=== PATIENT | female | born 1930 | race Caucasian/White ===

== ENCOUNTER 2017-09-19 14:35 | Emergency (ER) | payer MEDICARE ==
--- NOTE | 2017-09-19 15:58 | RAD ---
INDICATION: RIGHT wrist pain for one week. Limitation in extension of fingers. COMPARISON: None. TECHNIQUE: AP, lateral, and oblique views RIGHT wrist. REPORT: Negative for fracture or malalignment. Severe nonfocal soft tissue swelling. No subcutaneous emphysema or conspicuous foreign body. 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 Osteoarthritis is also advanced scaphoid trapezium articulation. Diastases at the scapholunate interval and increased scapholunate angle with scapholunate ligament tear. Osseous erosion at the ulnar styloid. At the distal margin of the [id number] there is osteoarthritis at the metacarpal phalangeal joints. IMPRESSION: 1. Diffuse soft tissue swelling; correlate for cellulitis as well as systemic causes of soft tissue edema. Deep soft tissue infection and septic arthritis is not excluded on the basis of this exam. 2. 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 3. Small nonspecific osseous erosion at the ulnar styloid.
--- NOTE | 2017-09-19 16:10 | UC ---
Upper Extremity HPI - HPI Summary HPI Summary: c/o right wrist and hand pain for the past 3-4 days. Denies history of trauma, fall, cut or triggering movement. Denies fever, denies changes of medications besides usual. Allergies: Sulfas. - History of Current Complaint Chief Complaint: UCUpperExtremity Stated Complaint: WRIST PAIN Time Seen by Provider: 09/19/17 15:29 - Allergies/Home Medications Allergies/Adverse Reactions: Allergies Allergy/AdvReac Type Severity Reaction Status Date / Time Sulfa Antibiotics Allergy Intermediate Hives Verified 09/19/17 15:03 Home Medications: Home Medications Insulin Aspart [Novolog Flexpen] 100 unit SC DAILY 09/19/17 [History Confirmed 09/19/17] Metoprolol Tartrate [Lopressor] 50 mg PO BID 09/19/17 [History Confirmed ] Spironolactone [Aldactone 25 MG-] 12.5 mg PO DAILY 09/19/17 [History Confirmed 09/19/17] amLODIPine TAB* [Norvasc 5 mg TAB*] 10 mg PO DAILY 09/19/17 [History Confirmed 09/19/17] PMH/Surg Hx/FS Hx/Imm Hx Previously Healthy: Yes Endocrine History: Diabetes Cardiovascular History: Cardiac Disease, Hypertension - Surgical History Surgical History: Yes Surgery Procedure, Year, and Place: bilat knee replacements - Social History Alcohol Use: None Substance Use Type: None Smoking Status (MU): Never Smoked Tobacco - Immunization History Most Recent Influenza Vaccination: 2017 Review of Systems Constitutional: Negative Skin: Negative Musculoskeletal: Arthralgia, Edema Is Patient Immunocompromised?: No All Other Systems Reviewed And Are Negative: Yes Physical Exam Triage Information Reviewed: Yes Appearance: Well-Appearing, Obese Vital Signs: Initial Vital Signs Temp 99.0 F 09/19/17 14:55 Pulse 79 09/19/17 14:55 Resp 20 09/19/17 14:55 BP 182/55 09/19/17 14:55 Pulse Ox 97 09/19/17 14:55 Vital Signs Reviewed: Yes Eyes: Positive: Conjunctiva Clear Respiratory Exam: Normal Cardiovascular Exam: Normal Musculoskeletal Exam: Other - erythema and soft tissue swelling right wrist and hand. Unable to evaluate ROM due to pain. Radial/ulnar pulse positive b/l. Upper Extremity Course/Dx - Course Course Of Treatment: start antibiotic first dose at UC and continue as prescribed every 12 hrs for a week. Follow up with PCP in a week for evaluation and follow up - Differential Dx/Diagnosis Provider Diagnoses: cellulitis right hand/wrist Discharge - Discharge Plan Condition: Stable Disposition: HOME Patient Education Materials: Cellulitis (ED) Referrals: Neno Leigh MD [Primary Care Provider] -
[2017-09-19] MEDS ORDERED: Amoxicillin/Clavulanate TAB* 875 MG PO ONE (16:18)
[2017-09-19] MEDS ORDERED: HYDROcodone/ACETAMIN 5-325 MG* 1 TAB PO PRN (16:31)
[2017-09-19] MEDS ORDERED: HYDROcodone/ACETAMIN 5-325 MG* 1 TAB PO ONE ×2 (16:36→16:57)
[2017-09-19 17:14] VITALS: BP 169/68
== END 2017-09-19 17:00 | disposition home or self-care (01) ==
LOC: UCEAST 14:35
DX: L03.113 Cellulitis of right upper limb (principal); E11.9 Type 2 diabetes mellitus without complications; E66.9 Obesity, unspecified; I10 Essential (primary) hypertension; Z79.4 Long term (current) use of insulin; Z88.2 Allergy status to sulfonamides
CPT/HCPCS: 99213; A9270-GY; G0463